=== PATIENT | female | born 1970 | race Caucasian/White ===

== ENCOUNTER 2018-07-15 11:35 | Emergency (ER) | payer OTHER ==
--- NOTE | 2018-07-15 12:03 | ED ---
Complex/Multi-Sys Presentation - HPI Summary HPI Summary: This patient is a 47 y/o female, accompanied by her , presents to [facility] with a chief complaint of worrying about carbon monoxide poisoning since her symptoms started at 19:00 07/14/18. Per triage note, light headed, nausea, mild headache last night. is worried about CO poisoning, alarms did not go off. slept with window open, continues to have symptoms today with racing HR. She claims that she was working in her home office when she felt like she was drunk. Her reports that their boiler had an elevated level of carbon monoxide 1.5 weeks ago which was not high enough to set off any alarms and that her home office is in the room next to the boiler room. The patient claims that she was in her office intermittently for 6-7 hours but did not feel poorly until after dinner. In addition to the symptoms described in the triage note, the patient also c/o feeling off-balance, cough, runny nose, feeling tahycardic and left ear pain. Movement aggravates her pain, claiming that when turning her head things felt like they were delayed. She denies a relevant PMHx and reports taking estrogen. - History Of Current Complaint Chief Complaint: EDGeneral Time Seen by Provider: 07/15/18 11:46 Hx Obtained From: Patient Onset/Duration: Sudden Onset, Lasting Hours, Still Present Timing: Constant, Hours Severity Currently: Mild Severity Initially: Mild Character: Unable To Describe Aggravating Factor(s): Movement Alleviating Factor(s): Nothing Associated Signs And Symptoms: Positive: Dizziness, Headache, Cough, Nausea. Negative: Fever - Allergies/Home Medications Allergies/Adverse Reactions: Allergies Allergy/AdvReac Type Severity Reaction Status Date / Time No Known Allergies Allergy Verified 07/15/18 11:41 PMH/Surg Hx/FS Hx/Imm Hx Endocrine/Hematology History: Denies: Hx Diabetes Cardiovascular History: Denies: Hx Hypertension Neurological History: Denies: Hx CVA - Cancer History Hx Chemotherapy: No Hx Radiation Therapy: No - Surgical History Surgery Procedure, Year, and Place: hysterectomy Infectious Disease History: No Infectious Disease History: Denies: Traveled Outside the [place] in Last 30 Days - Family History Known Family History: Positive: Diabetes - daughter Negative: Cardiac Disease, Hypertension - Social History Lives: With Family Alcohol Use: Occasionally Hx Substance Use: No Substance Use Type: Reports: None Hx Tobacco Use: No Smoking Status (MU): Never Smoked Tobacco Review of Systems Negative: Fever Positive: Ear Ache - left ear pain, Nasal Discharge Positive: Other - positive: feeling tachycardic Positive: Cough Positive: Nausea Neurological: Other - positive: lightheaded, feeling off balance All Other Systems Reviewed And Are Negative: Yes Physical Exam - Summary Physical Exam Summary: Appearance: Well-appearing, Well-nourished, lying in bed comfortably, appears anxious Skin: Warm, dry, no obvious rash Eyes: sclera anicteric, no conjunctival pallor ENT: mucous membranes moist, pharynx appears normal Neck: Supple, nontender Respiratory: Clear to auscultation, no signs of respiratory distress Cardiovascular: Normal S1, S2. No murmurs. Normal distal pulses in tibial and radial bilaterally. Abdomen: Soft, nontender, normal active bowel sounds present Musculoskeletal: Normal, Strength/ROM Intact Neurological: A&Ox3, awake and alert, mentation is normal, speech is fluent and appropriate Psychiatric: affect is normal, does not appear depressed Triage Information Reviewed: Yes Vital Signs On Initial Exam: Initial Vitals Temp Pulse Resp BP Pulse Ox 98.1 F 96 16 145/110 100 07/15/18 11:38 07/15/18 11:38 07/15/18 11:38 07/15/18 11:38 07/15/18 11:38 Vital Signs Reviewed: Yes Diagnostics - Vital Signs Vital Signs Temp Pulse Resp BP Pulse Ox 07/15/18 11:38 98.1 F 96 16 145/110 100 - Laboratory Result Diagrams: 07/15/18 11:20 07/15/18 11:20 Lab Statement: Any lab studies that have been ordered have been reviewed, and results considered in the medical decision making process. - EKG 11:53 Cardiac Rate: NL - 91 bpm EKG Rhythm: Sinus Rhythm Summary of EKG Findings: NSR at 91 BPM, P waves, QRS complex, and T waves are within normal limits, T waves and intervals are normal, no ischemic changes. This is a normal EKG Complex Multi-Symp Course/Dx Course Of Treatment: This patient is a 47 y/o female, accompanied by her , presents to [facility] with a chief complaint of worrying about carbon monoxide poisoning since her symptoms started at 19:00 07/14/18. The physical exam was unremarkable besides the patient appearing anxious. Lab results obtained and are WNL. EKG showed NSR at 91 bpm. In the ED course the patient was given Antivert Tab PO. The patient will be discharged with a prescription for Antivert Tab. She is agreeable with this plan. - Diagnoses Provider Diagnoses: Peripheral vertigo Discharge - Sign-Out/Discharge Documenting (check all that apply): Patient Departure - DC - Discharge Plan Condition: Good Disposition: HOME Prescriptions: Meclizine TAB* [Antivert 12.5 TAB*] 25 mg PO TID PRN #20 tab PRN Reason: Dizziness Patient Education Materials: Vertigo (ED) Referrals: Betty Ramon MD [Primary Care Provider] - 3 Days (if not improving) - Billing Disposition and Condition Condition: GOOD Disposition: Home - Attestation Statements Document Initiated by uLkasibe: Yes Documenting Scribe: Logan Woody Provider For Whom Lukasibmatias is Documenting (Include Credential): Matt Dao MD Scribe Attestation: Logan Kim scribed for Matt Dao MD on 07/15/18 at 1717. Scribe Documentation Reviewed: Yes Provider Attestation: The documentation as recorded by the Logan hickman accurately reflects the service I personally performed and the decisions made by Matt ibrahim MD Status of Scribe Document: Viewed
[2018-07-15 12:18] LABS: ABS Basophils 0 10^3/ul (0-0.2); ABS Eosinophils 0.1 10^3/ul (0-0.6); ABS Lymphocytes 1.3 10^3/ul (1.0-4.8); ABS Monocytes 0.4 10^3/ul (0-0.8); ABS Neutrophils 3.3 10^3/ul (1.5-7.7); ABS Nucleated RBC 0 10^3/ul; Eosinophil % 1.3 %; Hematocrit 39 % (35-47); Hemoglobin 13.3 g/dl (12.0-16.0); Lymphocyte % 25.9 %; Mean Corpuscular HGB Conc 34 g/dl (31-36); Mean Corpuscular Hemoglobin 32 pg (27-31); Mean Corpuscular Volume 93 fL (80-97); Mean Platelet Volume 9.6 fL (7.4-10.4); Nucleated Red Blood Cells % 0.1; Platelet Count 184 10^3/ul (150-450); Red Blood Count 4.21 10^6/ul (4.00-5.40); Red Cell Distribution Width 13 % (10.5-15)
[2018-07-15 12:44] LABS: Albumin 4.2 g/dL (3.2-5.2); Albumin/Globulin Ratio 1.5 (1-3); BUN/Creatinine Ratio 17.6 (8-20); EGFR Non-African American 84.1 (>60); Globulin 2.8 g/dL (2-4); Potassium 3.8 mmol/L (3.5-5.0); Total Bilirubin 0.6 mg/dL (0.2-1.0)
[2018-07-15] MEDS ORDERED: Meclizine TAB* 12.5 MG PO ONE (13:16)
[2018-07-15 13:29] VITALS: BP 108/77
[2018-07-15 13:31] LABS: TSH (Thyroid Stimulating Horm) 3.12 mcIU/mL (0.34-5.60)
== END 2018-07-15 13:28 | disposition home or self-care (01) ==
LOC: ED 11:35
DX: H81.399 Other peripheral vertigo, unspecified ear (principal); H92.02 Otalgia, left ear; R05 Cough; R11.0 Nausea
CPT/HCPCS: 36415; 80053; 82375; 83605; 84443; 85025; 93005; 99282; A9270-GY